=== PATIENT | female | born 1990 | race African-American/Black ===

== ENCOUNTER 2018-11-15 14:15 | Emergency (ER) | payer OTHER ==
[2018-11-15 14:24] VITALS: BP 113/74
[2018-11-15 15:28] LABS: Influenza A Molecular NEGATIVE (Negative); Influenza B Molecular NEGATIVE (Negative)
--- NOTE | 2018-11-15 15:51 | UC ---
FLU HPI - HPI Summary HPI Summary: 28 y/o female presents to the urgent care c/o sore throat , fever, chills, mild UNDERWOOD and body aches for the past 3 days. Pain w/ swallowing is 8/10. she had fever of 102F yesterday and took Advil 400mg PO. Pt denies SOB, dizziness, neck pain, abdominal pain, chest pain, N/v/d. - History of Current Complaint Chief Complaint: UCRespiratory Stated Complaint: FLU LIKE SYMP Time Seen by Provider: 11/15/18 15:50 Hx Obtained From: Patient Hx Last Menstrual Period: 2 wks ago Onset/Duration: Gradual Onset, Lasting Days - 3 days, Still Present, Worse Since - yesterday Severity Currently: Mild Severity Initially: Moderate Pain Intensity: 8 Pain Scale Used: 0-10 Numeric Associated Signs & Symptoms: Positive: Fever, T Max - 102F yesterday, Sore Throat, Nasal Congestion, Headache - mild. Negative: Cough - Risk Factors Influenza Risk Factors: Negative - Allergy/Home Medications Allergies/Adverse Reactions: Allergies Allergy/AdvReac Type Severity Reaction Status Date / Time No Known Allergies Allergy Verified 11/15/18 14:24 PMH/Surg Hx/FS Hx/Imm Hx Previously Healthy: Yes Respiratory History: Asthma Other Cancer History: Hodgkins lymphoma in remission - Surgical History Surgical History: Yes Surgery Procedure, Year, and Place: Hodgkins Lymphoma age 16 - had port and neck biopsy - Family History Known Family History: Positive: Cardiac Disease, Respiratory Disease - asthma, Other - grandmother - peripheral vascular disease Negative: Hypertension, Blood Disorder - Social History Occupation: Employed Full-time Lives: With Family Alcohol Use: Occasionally Substance Use Type: None Smoking Status (MU): Never Smoked Tobacco Type: Cigarettes Have You Smoked in the Last Year: Yes Household Exposure Type: Cigarettes - Immunization History Most Recent Influenza Vaccination: 06/14 Most Recent Tetanus Shot: unknown Most Recent Pneumonia Vaccination: never Review of Systems All Other Systems Reviewed And Are Negative: Yes Constitutional: Positive: Fever, Chills Skin: Positive: Negative Eyes: Positive: Negative ENT: Positive: Sore Throat, Nasal Discharge - clear Respiratory: Positive: Negative Cardiovascular: Positive: Negative Gastrointestinal: Positive: Negative Genitourinary: Positive: Negative Motor: Positive: Negative Neurovascular: Positive: Negative Musculoskeletal: Positive: Myalgia Neurological: Positive: Headache - mild Psychological: Positive: Negative Is Patient Immunocompromised?: No Physical Exam - Summary Physical Exam Summary: VITAL SIGNS: Reviewed. GENERAL: Patient is a well developed and nourished female who is sitting comfortable in the examining table. Patient is not in any acute respiratory distress. HEAD AND FACE: No signs of trauma. No ecchymosis, hematomas or skull depressions. No sinus tenderness. EYES: PERRLA, EOMI x 2, No injected conjunctiva, no nystagmus. No photophobia. EARS: Hearing grossly intact. Ear canals and tympanic membranes are within normal limits. MOUTH: Positive pharynx with erythema, exudates, palatal petechiae. B/L tonsillar enlargement with exudate. Uvula in midline. NECK: Supple, trachea is midline, Positive anterior cervical lymphadenopathy, no JVD, no carotid bruit, no c-spine tenderness, neck with full ROM. No meningeal signs, no Kernig's or brudzinskis signs. CHEST: Symmetric, no tenderness at palpation LUNGS: Clear to auscultation bilaterally. No wheezing or crackles. CVS: Regular rate and rhythm, S1 and S2 present, no murmurs or gallops appreciated. ABDOMEN: Soft, non-tender. No signs of distention. No rebound no guarding, and no masses palpated. Bowel sounds are normal. EXTREMITIES: FROM in all major joints, no edema, no cyanosis or clubbing. NEURO: Alert and oriented x 3. No acute neurological deficits. Speech is normal and follows commands. SKIN: Dry and warm Triage Information Reviewed: Yes Vital Signs: Initial Vital Signs Temp 97.6 F 11/15/18 14:22 Pulse 94 11/15/18 14:22 Resp 12 11/15/18 14:22 BP 113/74 11/15/18 14:22 Pulse Ox 100 11/15/18 14:22 Flu Course/Dx - Course Course Of Treatment: 28 y/o female presents to the urgent care c/o sore throat , fever, chills, mild UNDERWOOD and body aches for the past 3 days. Pain w/ swallowing is 8/10. she had fever of 102F yesterday and took Advil 400mg PO. Pt denies SOB, dizziness, neck pain, abdominal pain, chest pain, N/v/d.Hx obtained. Pt given at the clinic Ibuprofen PO by the nurse to alleviate symptoms. Pt tolerated well medication and felt better. Pt w/ pharyngitis on examination. Rapid strep ordered: result: positive. Strep pharyngitis. Rx Amoxicillin PO and Ibuprofen PO for pain and swelling. PT Advised on hand washing to avoid spreading. Also advised to rest, eat well and avoid strenuous exercise. If symptoms do not improve or worsen advised to return to the urgent care or f/u with her PCP in 3 days for further evaluation and treatment. PT understood and agreed - Differential Dx/Diagnosis Differential Diagnosis/HQI/PQRI: Bronchitis, Influenza, Other - pharyngitis, tonsillitis Provider Diagnosis: Strep pharyngitis Discharge - Sign-Out/Discharge Documenting (check all that apply): Patient Departure - D/C home All imaging exams completed and their final reports reviewed: No Studies - Discharge Plan Condition: Stable Disposition: HOME Prescriptions: Amoxicillin PO (*) [Amoxicillin 500 MG CAP*] 500 mg PO Q12H #20 cap Ibuprofen TAB* [Motrin TAB* 600 MG] 600 mg PO Q6H PRN #30 tab PRN Reason: Sore Throat Patient Education Materials: Strep Throat (ED) Referrals: Kasi Bloom MD [Primary Care Provider] - 3 Days Additional Instructions: 1- Please take the full course of the antibiotic to avoid resistance. 2-Please take ibuprofen PO q6-8hrs prn as instructed after meals to alleviate pain and swelling. Increase fluid intake, eat well, rest and avoid strenuous exercise 3-If symptoms do not improve or worsen please return to the urgent care or f/u with your PCP for further evaluation and treatment. - Billing Disposition and Condition Condition: STABLE Disposition: Home
[2018-11-15] MEDS ORDERED: Ibuprofen TAB* 400 MG PO ONE (16:19)
== END 2018-11-15 16:40 | disposition home or self-care (01) ==
LOC: UCEAST 14:15
DX: J02.0 Streptococcal pharyngitis (principal); J45.909 Unspecified asthma, uncomplicated
CPT/HCPCS: 87651; 99212; A9270-GY; G0463

== ENCOUNTER 2019-07-08 14:59 | Emergency (ER) | payer OTHER ==
[2019-07-08 15:10] VITALS: BP 117/65
--- NOTE | 2019-07-08 15:17 | UC ---
Throat Pain/[place] HPI - HPI Summary HPI Summary: 28 yo female presents with sore throat. She tells me that for the last 2 days she has had a sore throat with fatigue and swollen tonsils. She has been taking OTC mucinex cold medicine with no relief. She is eating, drinking, and tolerating po well. Denies sinus symptoms, cough, rash, abdominal pain, n/v. She has a hx of lymphoma, but is in remission and is not currently undergoing any treatments. - History of Current Complaint Chief Complaint: UCGeneralIllness Stated Complaint: SORE THROAT Time Seen by Provider: 07/08/19 15:16 Hx Obtained From: Patient Hx Last Menstrual Period: [id number] Onset/Duration: Sudden Onset Severity: Moderate Pain Intensity: 7 Pain Scale Used: 0-10 Numeric - Allergies/Home Medications Allergies/Adverse Reactions: Allergies Allergy/AdvReac Type Severity Reaction Status Date / Time No Known Allergies Allergy Verified 07/08/19 15:11 Home Medications: Home Medications Phenylephrine/Dm/Acetaminop/GG [Mucinex Fast-Max Cold Flu] 1 tab PO Q6H PRN 02/18 [History Confirmed 07/08/19] PMH/Surg Hx/FS Hx/Imm Hx - Additional Past Medical History Additional PMH: Lymphoma - Surgical History Surgical History: None Surgery Procedure, Year, and Place: none - Family History Known Family History: Positive: Cardiac Disease, Respiratory Disease - asthma, Other - grandmother - peripheral vascular disease Negative: Hypertension, Blood Disorder - Social History Lives: With Family Alcohol Use: Weekly Substance Use Type: None Smoking Status (MU): Light Every Day Tobacco Smoker Type: Cigarettes Have You Smoked in the Last Year: Yes Household Exposure Type: Cigarettes - Immunization History Most Recent Influenza Vaccination: 06/14 Most Recent Tetanus Shot: unknown Most Recent Pneumonia Vaccination: never Review of Systems All Other Systems Reviewed And Are Negative: No Constitutional: Positive: Chills, Fatigue Skin: Positive: Negative Eyes: Positive: Negative ENT: Positive: Sore Throat Respiratory: Positive: Negative Cardiovascular: Positive: Negative Gastrointestinal: Positive: Negative Physical Exam - Summary Physical Exam Summary: GENERAL: NAD. WDWN. No pain distress. SKIN: No rashes, sores, lesions, or open wounds. HEENT: Head: AT/NC Eyes: Conjunctiva clear without inflammation or discharge. Ears: Hearing grossly normal. TMs intact, no bulging, erythema, or edema. Nose: Nasal mucosa pink and moist. NTTP maxillary and frontal sinus. Throat: Posterior oropharynx mild erythema and 2+ tonsillar enlargement. No exudates. Uvula midline. No hoarse voice or muffled voice. NECK: Supple. Tonsillar LAD NTTP. CHEST: CTAB. No r/r/w. No accessory muscle use. Breathing comfortably and in no distress. CV: RRR.. Pulses intact. Cap refill <2seconds NEURO: Alert. PSYCH: Age appropriate behavior. Triage Information Reviewed: Yes Vital Signs: Initial Vital Signs Temp 98.2 F 07/08/19 15:04 Pulse 105 07/08/19 15:04 Resp 18 07/08/19 15:04 BP 117/65 07/08/19 15:04 Pulse Ox 100 07/08/19 15:04 Laboratory Tests 07/08/19 15:13 Group A Strep Rapid Positive A Vital Signs Reviewed: Yes Throat Pain/Nasal Course/Dx - Course Course Of Treatment: POC strep positive. Rx for amoxicillin - Differential Dx/Diagnosis Provider Diagnosis: Strep throat Discharge ED - Sign-Out/Discharge Documenting (check all that apply): Patient Departure All imaging exams completed and their final reports reviewed: No Studies - Discharge Plan Condition: Stable Disposition: HOME Prescriptions: Amoxicillin PO (*) [Amoxicillin 500 MG CAP*] 500 mg PO Q12H #20 cap Patient Education Materials: Strep Throat (ED) Referrals: Pia Weathers MD [Primary Care Provider] - Additional Instructions: If you develop a fever, shortness of breath, chest pain, new or worsening symptoms - please call your PCP or go to the ED immediately. - Billing Disposition and Condition Condition: STABLE Disposition: Home
== END 2019-07-08 15:37 | disposition home or self-care (01) ==
LOC: UCEAST 14:59
DX: J02.0 Streptococcal pharyngitis (principal); F17.210 Nicotine dependence, cigarettes, uncomplicated; R53.83 Other fatigue
CPT/HCPCS: 87651; 99212; G0463

== ENCOUNTER 2019-07-13 16:40 | Emergency (ER) | payer OTHER ==
--- NOTE | 2019-07-13 17:08 | ED ---
Throat Pain/Nasal Congestion - HPI Summary HPI Summary: Patient currently taking amoxicillin for strep infection complains of right eye redness and drainage 3 days. Denies vision change, fever, ear pain, trauma. No contact lenses. Patient wears glasses. Denies any other symptoms, pain or injury. - History of Current Complaint Chief Complaint: EDEyeProblem Time Seen by Provider: 07/13/19 17:06 Hx Obtained From: Patient Onset/Duration: Gradual Onset, Lasting Days Severity: Mild Associated Signs And Symptoms: Positive: Negative Cough: None - Allergies/Home Medications Allergies/Adverse Reactions: Allergies Allergy/AdvReac Type Severity Reaction Status Date / Time No Known Allergies Allergy Verified 07/13/19 16:49 PMH/Surg Hx/FS Hx/Imm Hx Endocrine/Hematology History: Denies: Hx Diabetes, Hx Thyroid Disease Cardiovascular History: Reports: Other Cardiovascular Problems/Disorders Denies: Hx Congestive Heart Failure, Hx Hypertension Respiratory History: Reports: Hx Asthma - mild Denies: Hx Chronic Obstructive Pulmonary Disease (COPD), Other Respiratory Problems/Disorders - hx hodgkins as a child GI History: Denies: Hx Ulcer History: Denies: Hx Dialysis, Hx Renal Disease Sensory History: Denies: Hx Legally Blind, Hx Deafness Opthamlomology History: Denies: Hx Legally Blind EENT History: Denies: Hx Deafness Neurological History: Denies: Hx Dementia - Cancer History Cancer Type, Location and Year: hodgkins lymphoma - Surgical History Surgery Procedure, Year, and Place: none Infectious Disease History: No Infectious Disease History: Denies: Hx Hepatitis, Hx Human Immunodeficiency Virus (HIV), Traveled Outside the [place] in Last 30 Days - Family History Known Family History: Positive: Cardiac Disease, Respiratory Disease - asthma, Other - grandmother - peripheral vascular disease Negative: Hypertension, Blood Disorder - Social History Alcohol Use: Weekly Hx Substance Use: No Substance Use Type: Reports: None Smoking Status (MU): Light Every Day Tobacco Smoker Type: Cigarettes Have You Smoked in the Last Year: Yes Review of Systems Constitutional: Negative Positive: Drainage, Erythema ENT: Negative Cardiovascular: Negative Respiratory: Negative Gastrointestinal: Negative Genitourinary: Negative Musculoskeletal: Negative Skin: Negative Neurological: Negative Psychological: Normal All Other Systems Reviewed And Are Negative: Yes Physical Exam Triage Information Reviewed: Yes Vital Signs On Initial Exam: Initial Vitals Temp Pulse Resp BP Pulse Ox 98.6 F 90 14 108/89 100 11/11/19 16:46 07/13/19 16:46 07/13/19 16:46 07/13/19 16:46 07/13/19 16:46 Vital Signs Reviewed: Yes Appearance: Positive: Well-Appearing Skin: Positive: Warm Head/Face: Positive: Normal Head/Face Inspection Eyes: Positive: Normal, EOMI, TATE, Conjunctiva Inflammed, Discharge ENT: Positive: Normal ENT inspection Neck: Positive: Supple Respiratory/Lung Sounds: Positive: Clear to Auscultation Cardiovascular: Positive: Normal Abdomen Description: Positive: Nontender Musculoskeletal: Positive: Normal Neurological: Positive: Normal Psychiatric: Positive: Normal AVPU Assessment: Alert - [place] Coma Scale Best Eye Response: 4 - Spontaneous Best Motor Response: 6 - Obeys Commands Best Verbal Response: 5 - Oriented Coma Scale Total: 15 Procedures - Sedation Patient Received Moderate/Deep Sedation with Procedure: No Diagnostics - Vital Signs Vital Signs Temp Pulse Resp BP Pulse Ox 07/13/19 16:46 98.6 F 90 14 108/89 100 - Laboratory Lab Statement: Any lab studies that have been ordered have been reviewed, and results considered in the medical decision making process. EENT Course/Dx - Course Course Of Treatment: Patient currently taking amoxicillin for strep infection complains of right eye redness and drainage 3 days. Denies vision change, fever, ear pain, trauma. No contact lenses. Patient wears glasses. Denies any other symptoms, pain or injury. Vital signs within normal limits. Rx for polymyxin B drops. - Diagnoses Provider Diagnoses: Conjunctivitis Discharge ED - Sign-Out/Discharge Documenting (check all that apply): Patient Departure - Discharge Plan Condition: Stable Disposition: HOME Patient Education Materials: Conjunctivitis (ED) Forms: *Gen. Provider Communication Referrals: Pia Weathers MD [Primary Care Provider] - Tate King MD [Medical Doctor] - Additional Instructions: One drop of antibiotic solution and every 3 hours for 7 days. Follow-up with ophthalmology Dr. King for further evaluation if symptoms persist after 3 days of antibiotic solution. - Billing Disposition and Condition Condition: STABLE Disposition: Home
[2019-07-13] MEDS ORDERED: Polymyx/Trimethoprim OPTH* 10 ML BTL RIGHT EYE SCH (18:00)
[2019-07-20 11:53] VITALS: BP 0/0
== END 2019-07-13 18:30 | disposition home or self-care (01) ==
LOC: ED 16:40
DX: H10.9 Unspecified conjunctivitis (principal); F17.210 Nicotine dependence, cigarettes, uncomplicated
CPT/HCPCS: 99282

== ENCOUNTER 2019-12-31 19:05 | Emergency (ER) | payer OTHER ==
[2019-12-31 19:21] VITALS: BP 126/86
== END 2019-12-31 19:51 | disposition home or self-care (01) ==
LOC: UCEAST 19:05

== ENCOUNTER 2022-01-04 13:36 | Inpatient (IN) ==
[2022-01-04] MEDS ORDERED: Dinoprostone 10 MG VAG.SUPP VAGINAL ONE (14:40)
[2022-01-04] MEDS ORDERED: Buffered Lidocaine 1% SYRIN 1 ml INTRADERM ONE (14:40)
[2022-01-04] MEDS ORDERED: Lactated Ringers 1000 ml BAG 1,000 ML IV ONE (14:40)
[2022-01-04] MEDS ORDERED: Lactated Ringers 1000 ml BAG 1,000 ML IV SCH (15:00)
[2022-01-04 15:56] LABS: Urine Benzodiazepine Screen None Detected (None Detect); Urine Cannabinoids Screen None Detected (None Detect); Urine Opiates Screen None Detected (None Detect)
[2022-01-04] MEDS: Insulin NPH 100 units/ml SUBCUT SCH (23:09)
[2022-01-05] MEDS ORDERED: Buffered Lidocaine 1% SYRIN 1 ml INTRADERM ONE (11:56)
[2022-01-05 12:21] LABS: ABS Eosinophils 0.2 10^3/ul (0-0.6); ABS Lymphocytes 1.7 10^3/ul (1.0-4.8); ABS Monocytes 0.7 10^3/ul (0-0.8); ABS Neutrophils 7.7 10^3/ul (1.5-7.7); Eosinophil % 1.6 %; Hematocrit 31 % (35-47); Hemoglobin 10.2 g/dL (12.0-16.0); Lymphocyte % 16.5 %; Mean Corpuscular HGB Conc 33 g/dL (31-36); Mean Corpuscular Hemoglobin 28 pg (27-31); Mean Corpuscular Volume 85 fL (80-97); Mean Platelet Volume 9.8 fL (7.4-10.4); Nucleated Red Blood Cells % 0.1; Platelet Count 222 10^3/uL (150-450); Red Cell Distribution Width 15 % (10-15); White Blood Count 10.3 10^3/uL (3.5-10.8)
[2022-01-05] MEDS: Insulin NPH 100 units/ml SUBCUT SCH (21:09)
[2022-01-06] MEDS ORDERED: Oxytocin in LR 20 UNITS/1,000 ML BAG IVPB SCH ×2 (10:00→19:00)
[2022-01-06] MEDS ORDERED: Penicillin G Potassium IV 5,000,000 UNITS in NS 0.9% 100 ml BAG 100 ML IVPB ONE (10:30)
[2022-01-06] MEDS: Penicillin G Potassium IV 3,000,000 UNITS in NS 0.9% 100 ml BAG 100 ML IVPB SCH ×2 (15:51→19:10)
[2022-01-06] MEDS ORDERED: OBEPIDURAL (200 ML) 200 ML EPIDURAL ONE (17:03)
[2022-01-06] MEDS ORDERED: Lidocaine 1.5% EPI 1:200,000 30 ML SDV ONE (17:25)
[2022-01-06] MEDS ORDERED: Sodium Citrate/Citric Acid LIQ 15 ML UDC PO PRN (17:44)
[2022-01-06] MEDS ORDERED: Lactated Ringers 1000 ml BAG 1,000 ML IV ONE (17:44)
[2022-01-06] MEDS ORDERED: Phenylephrine 40 mcg/mL 10mL (400mcg) SYRINGE IV PUSH PRN ×2 (17:44)
[2022-01-06] MEDS ORDERED: OBEPIDURAL (200 ML) 200 ML EPIDURAL SCH (18:00)
[2022-01-06] MEDS ORDERED: Lactated Ringers 1000 ml BAG 1,000 ML IV SCH ×2 (18:00→19:00)
[2022-01-06] MEDS ORDERED: Glycerin ADULT 2.4 gm SUPP PR PRN (18:36)
[2022-01-06] MEDS ORDERED: Dibucaine 1% OINT 28.35 GM TUBE PR PRN (18:36)
[2022-01-06] MEDS ORDERED: Witch Hazel PAD JAR TOPICAL PRN (18:36)
[2022-01-07 08:14] LABS: ABS Basophils 0.1 10^3/ul (0-0.2); ABS Eosinophils 0.2 10^3/ul (0-0.6); ABS Lymphocytes 2.1 10^3/ul (1.0-4.8); ABS Monocytes 1.1 10^3/ul (0-0.8); ABS Neutrophils 11.9 10^3/ul (1.5-7.7); Eosinophil % 1.2 %; Hematocrit 32 % (35-47); Hemoglobin 10.4 g/dL (12.0-16.0); Lymphocyte % 13.6 %; Mean Corpuscular HGB Conc 33 g/dL (31-36); Mean Corpuscular Hemoglobin 27 pg (27-31); Mean Corpuscular Volume 84 fL (80-97); Mean Platelet Volume 10.1 fL (7.4-10.4); Platelet Count 224 10^3/uL (150-450); Red Blood Count 3.81 10^6 /uL (3.70-4.87); Red Cell Distribution Width 15 % (10-15); White Blood Count 15.3 10^3/uL (3.5-10.8)
[2022-01-07] MEDS ORDERED: Varicella Virus Vaccine Live 0.5 ML VIAL SUBCUT ONE (09:00)
[2022-01-07] MEDS ORDERED: Measles, Mumps,Rubella VACC 0.5 ML/VIAL SUBCUT ONE (09:00)
[2022-01-07] MEDS: Insulin NPH 100 units/ml SUBCUT SCH (10:02)
[2022-01-08 07:41] VITALS: BP 116/65
== END 2022-01-08 12:05 | disposition home or self-care (01) | DRG 560 ==
LOC: MCHOBOUT 13:36 → MCHOB 13:38
PROVIDERS: ADMIT Obstetrics & Gynecology; ATTEND Obstetrics & Gynecology

== ENCOUNTER 2023-08-18 00:50 | Inpatient (IN) ==
[2023-08-18] MEDS ORDERED: Lidocaine 1% VIAL 10 MG/ML 30 ML VIAL INJ PRN (01:28)
[2023-08-18] MEDS ORDERED: Buffered Lidocaine 1% SYRIN 1 ml INTRADERM ONE (01:28)
[2023-08-18] MEDS: Lactated Ringers 1000 ml BAG 1,000 ML IV ONE ×2 (01:45→02:50)
[2023-08-18] MEDS ORDERED: Lactated Ringers 1000 ml BAG 1,000 ML IV SCH ×2 (02:00→04:00)
[2023-08-18 02:12] LABS: ABS Eosinophils 0.2 10^3/uL (0.0-0.5); ABS Lymphocytes 2.4 10^3/uL (1.0-4.8); ABS Monocytes 1.3 10^3/uL (0.0-0.9); ABS Neutrophils 9.3 10^3/uL (1.5-7.6); ABS Nucleated RBC 0.01 10^3/ul; Eosinophil % 1.5 %; Hemoglobin 9.9 g/dL (11.5-14.3); Mean Corpuscular Hemoglobin 27.6 pg (27-33); Mean Corpuscular Hgb Conc 32.9 g/dL (31-36); Mean Corpuscular Volume 84.1 fL (80-97); Mean Platelet Volume 9.9 fL (7.5-11.2); Nucleated Red Blood Cells % 0.1 %/100WBC (0.0-0.8); Platelet Count 292 10^3/uL (150-450); Red Blood Count 3.57 10^6/uL (3.63-4.92); Red Cell Distribution Width 13.8 % (12-17); White Blood Count 13.1 10^3/uL (3.8-11.8)
[2023-08-18] MEDS ORDERED: Lidocaine 1.5% EPI 1:200,000 30 ML SDV ONE (02:22)
[2023-08-18] MEDS ORDERED: OBEPIDURAL (200 ML) 200 ML EPIDURAL ONE (02:22)
[2023-08-18] MEDS ORDERED: Phenylephrine 40 mcg/mL 10mL (400mcg) SYRINGE IV PUSH PRN ×2 (03:07)
[2023-08-18] MEDS ORDERED: Sodium Citrate/Citric Acid LIQ 15 ML UDC PO PRN (03:07)
[2023-08-18] MEDS ORDERED: Lactated Ringers 1000 ml BAG 1,000 ML IV ONE (03:07)
[2023-08-18 03:55] LABS: Urine Appearance Cloudy; Urine Bilirubin Negative (Negative); Urine Blood Negative (Negative); Urine Color Yellow; Urine Glucose Negative (Negative); Urine Ketones Negative (Negative); Urine Nitrite Negative (Negative); Urine Protein Negative (Negative); Urine Specific Gravity 1.013 (1.002-1.030); Urine Urobilinogen Negative (Negative)
[2023-08-18] MEDS ORDERED: OBEPIDURAL (200 ML) 200 ML EPIDURAL SCH (04:00)
[2023-08-18 04:21] LABS: Urine Bacteria Absent (Absent); Urine Red Blood Cell Trace(0-2/hpf) (Absent); Urine Squamous Epithelial Cell Present (Absent); Urine White Blood Cell 2+(11-20/hpf) (Absent)
[2023-08-18 04:22] LABS: Urine Benzodiazepine Screen None Detected (None Detect); Urine Cannabinoids Screen None Detected (None Detect); Urine Opiates Screen None Detected (None Detect)
[2023-08-18] MEDS ORDERED: Oxytocin in LR 20,000 MILLI.UNIT/1,000 ML BAG IV SCH (07:35)
[2023-08-18] MEDS ORDERED: Glycerin ADULT 2.4 gm SUPP PR PRN (09:00)
[2023-08-18] MEDS ORDERED: Dibucaine 1% OINT 28.35 GM TUBE PR PRN (09:00)
[2023-08-18] MEDS ORDERED: Witch Hazel PAD JAR TOPICAL PRN (09:00)
[2023-08-19 07:26] LABS: Hematocrit 26.5 % (35-45); Hemoglobin 8.8 g/dL (11.5-14.3); Mean Corpuscular Hgb Conc 33.1 g/dL (31-36); Mean Corpuscular Volume 84.6 fL (80-97); Mean Platelet Volume 9.8 fL (7.5-11.2); Platelet Count 273 10^3/uL (150-450); Red Blood Count 3.13 10^6/uL (3.63-4.92); Red Cell Distribution Width 13.8 % (12-17); White Blood Count 19.6 10^3/uL (3.8-11.8)
[2023-08-19 08:00] VITALS: BP 128/72
[2023-08-19 10:30] LABS: ABS Basophils 0.1 10^3/uL (0.0-0.1); ABS Eosinophils 0.3 10^3/uL (0.0-0.5); ABS Lymphocytes 3.1 10^3/uL (1.0-4.8); ABS Monocytes 1.7 10^3/uL (0.0-0.9); ABS Neutrophils 14.5 10^3/uL (1.5-7.6); ABS Nucleated RBC 0.01 10^3/ul; Eosinophil % 1.5 %; Lymphocyte % 15.6 %
== END 2023-08-19 13:40 | disposition home or self-care (01) | DRG 560 ==
LOC: MCHOBOUT 00:50 → MCHOB 01:16
PROVIDERS: ADMIT Midwife; ATTEND Midwife